=== PATIENT | female | born 2000 | race Caucasian/White ===

== ENCOUNTER 2020-02-15 08:33 | Outpatient (REF) | payer OTHER, SELFPAY ==
[2020-02-15 12:15] LABS: Syphilis Screen Nonreactive (Nonreactive)
[2020-02-15 13:59] LABS: CT PCR NOT DETECTED (Not Detect.); NG PCR NOT DETECTED (Not Detect.)
[2020-02-16 04:32] LABS: Hepatitis B Surface Antigen Negative (Negative); ~Hepatitis C Antibody Nonreactive (Nonreactive)
[2020-02-16 04:38] LABS: HIV AB/AG Nonreactive (Nonreactive); HIV Num 1 0.08 S/CO (0.00-0.99)
[2020-02-16 13:51] LABS: BV Int Neg Control Negative (Negative); BV Int Pos Control Positive (Positive)
== END 2020-02-15 08:34 | disposition home or self-care (01) ==
LOC: HO.LAB 08:33
PROVIDERS: Visit Provider Advanced Practice Midwife
DX: Z01.419 Encounter for gynecological examination (general) (routine) without abnormal findings (principal); Z11.59 Encounter for screening for other viral diseases; Z11.4 Encounter for screening for human immunodeficiency virus [HIV]; Z11.3 Encounter for screening for infections with a predominantly sexual mode of transmission; Z11.8 Encounter for screening for other infectious and parasitic diseases
CPT/HCPCS: 86780; 86803; 87340; 87389; 87480; 87491; 87510; 87591; 87660

== ENCOUNTER 2021-02-16 09:01 | Outpatient (REF) | payer OTHER, SELFPAY ==
[2021-02-17 13:54] LABS: CT PCR NOT DETECTED (Not Detect.); NG PCR NOT DETECTED (Not Detect.)
[2021-02-19 14:48] LABS: BV Int Neg Control Negative (Negative); BV Int Pos Control Positive (Positive)
== END 2021-02-16 09:02 | disposition home or self-care (01) ==
LOC: HO.LAB 09:01
PROVIDERS: PCP Internal Medicine; Visit Provider Advanced Practice Midwife
DX: Z30.41 Encounter for surveillance of contraceptive pills (principal); Z20.2 Contact with and (suspected) exposure to infections with a predominantly sexual mode of transmission
CPT/HCPCS: 87480; 87491; 87510; 87591; 87660; 88142

== ENCOUNTER 2022-03-16 10:27 | Outpatient (REF) | payer OTHER, SELFPAY ==
[2022-03-16 12:25] LABS: HBsAGNum1 0.32 S/CO (0.00-0.99); HIV AB/AG Nonreactive (Nonreactive); HIV Num 1 0.08 S/CO (0.00-0.99); Hepatitis B Surface Antigen Negative (Negative); ~HepC Num1 0.07 S/CO (0.00-0.79); ~Hepatitis C Antibody Nonreactive (Nonreactive)
[2022-03-16 12:26] LABS: Syphilis Screen Nonreactive (Nonreactive)
[2022-03-16 14:00] LABS: CT PCR NOT DETECTED (Not Detect.); NG PCR NOT DETECTED (Not Detect.)
[2022-03-18 14:21] LABS: BV Int Neg Control Negative (Negative); BV Int Pos Control Positive (Positive)
== END 2022-03-16 10:28 | disposition home or self-care (01) ==
LOC: HO.LNP 10:27
PROVIDERS: Visit Provider Advanced Practice Midwife
DX: Z11.3 Encounter for screening for infections with a predominantly sexual mode of transmission (principal); Z11.4 Encounter for screening for human immunodeficiency virus [HIV]; Z20.2 Contact with and (suspected) exposure to infections with a predominantly sexual mode of transmission
CPT/HCPCS: 86780; 86803; 87340; 87389; 87480; 87491; 87510; 87591; 87660

== ENCOUNTER 2023-01-14 15:01 | Outpatient (AMB) | payer BC, OTHER, SELFPAY ==
[2023-01-14 16:02] VITALS: BP 100/60; PULSE 98; TEMP 37.1; O2SAT 99; BMI 21.1
--- NOTE | 2023-01-14 16:02 | AM.OFFWIN_ITS ---
Intake Vital Signs 01/14/23 16:02 Height 5 ft 4 in Weight 123 lb BMI 21.1 BP 100/60 Blood Pressure Location Rt brachial Position Sitting Pulse 98 Pulse Source Pulse Oximeter Temp 98.7 F Temp Source Temporal Artery Scan Pulse Oximetry (%) 99 Oxygen Delivery Method Room Air Intake Visit Reasons: EP, redness eyes Intake Note: pt is here today for redness eyes Allergies [place] And Derivatives [CITRUS] Allergy (Severe, Verified 01/14/23 16:03) ANAPHYLAXIS peanut [PEANUT] Allergy (Severe, Verified 01/14/23 16:03) ANAPHYLAXIS citrus fruit Allergy (Unknown, Uncoded 01/14/23 16:03) itchy throat peanut Allergy (Unknown, Uncoded 01/14/23 16:03) anaphylaxis peanut buttter Allergy (Unknown, Uncoded 01/14/23 16:03) anaphylaxis Do you need a note to return to daycare/school/sports/work: No HPI EP, redness eyes HPI Details 22-year-old female [facility] sick [facility]. Patient is complaining of redness in both eyes. Itchiness with mucoid discharge. [facility] Medical History Dysuria Mild persistent asthma Surgical History No history of previous surgery Family History Mother Asthma Maternal Grandmother Liver cancer Paternal Grandmother Ovarian cancer Social History Alcohol intake: never Gender identity: Female Female Reproductive History Menstrual Age of Menarche: 14 Physical Exam Vital Signs: Last Vital Signs Temp 98.7 F 01/14/23 16:02 Pulse 98 01/14/23 16:02 BP 100/60 01/14/23 16:02 Pulse Ox 99 01/14/23 16:02 Oxygen Delivery Method Room Air 01/14/23 16:02 BMI result Body Mass Index 21.1 Eyes Other: Conjunctival congestion bilaterally. Corneas clear. Assessment & Plan Assessment & Plan (1) Conjunctivitis: Code(s): H10.9 - Unspecified conjunctivitis Plan: Erythromycin ophthalmic ointment. Note for work given. If symptoms not better to follow-up here. Medications: New erythromycin 0.5 inches ophthalmic (eye) TID 1 g 0RF Coding Level of Care Code Est Pt Level 3 (82913) Diagnoses Conjunctivitis H10.9
== END 2023-01-14 16:58 | disposition home or self-care (01) ==
PROVIDERS: PCP Nurse Practitioner Family; Visit Provider Internal Medicine
DX: H10.9 Unspecified conjunctivitis (principal)
CPT/HCPCS: 99213

== ENCOUNTER 2023-03-01 09:04 | Outpatient (AMB) | payer BC, SELFPAY ==
[2023-03-01 09:12] VITALS: BP 108/66; PULSE 96; RESP 13; TEMP 36.6; O2SAT 99; BMI 21.4
--- NOTE | 2023-03-01 09:12 | A.OFFPC_ITS ---
Vital Signs 03/01/23 09:12 Height 5 ft 4 in Weight 124 lb 8 oz BMI 21.4 BP 108/66 Blood Pressure Location Rt brachial Position Sitting Respiration 13 Pulse 96 Pulse Source Pulse Oximeter Temp 97.8 F Temp Source Temporal Artery Scan Pulse Oximetry (%) 99 Oxygen Delivery Method Room Air Intake Visit Reasons: New patient-Requesting PE+ NEEDS PHQ9 +THRIVE Television Announcer Required: No Accompanied by: Self / Same As Patient Allergies [place] And Derivatives [CITRUS] Allergy (Severe, Verified 03/01/23 09:27) ANAPHYLAXIS peanut [PEANUT] Allergy (Severe, Verified 03/01/23 09:27) ANAPHYLAXIS citrus fruit Allergy (Unknown, Uncoded 03/01/23 09:27) itchy throat peanut Allergy (Unknown, Uncoded 03/01/23 09:27) anaphylaxis peanut buttter Allergy (Unknown, Uncoded 03/01/23 09:27) anaphylaxis Medication List - Last Reconciled 03/01/23 by Tu Dominguez CNP norgestimate-ethinyl estradiol 0.25-35 mg-mcg (Sprintec (28)) 1 tab PO DAILY Tobacco use date assessed: 03/01/23 Dental Screening Dental Screen Date: 03/01/23 Did you have a dental visit in the last 12 months?: Yes Did you have a dental problem in the last 6 months where you did not have access to dental care?: No Was dental information given to patient?: Patient has dentist HPI HPI Comments History of Present Illness Details New patient Prior PCP:?[facility], Bonnie Otero Last office visit/CPE: Over 4 years ago Last routine blood work: unable to recall Medications: Sprintec Acute issue(s): Asthma -She is on albuterol inhaler Q4-6H PRN. She uses her inhaler every other day at least daily. She is recovering from cold symptoms PMHx: Mild persistent asthma SurgHx: None FHx: Mom: Asthma. MGM: liver cancer. PGM: Ovarian cancer SocHx: Nonsmoker. Occasional drinker. 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 She requests refill for EpiPen Last pap smear test: 2 years ago: negative She notes that she is sexually active, in a monogamous relationship, and has no concerns for STD [facility] Medical History (Updated 03/01/23 @ 09:59 by Tu Dominguez CNP) Anxiety Eczema Dysuria Mild persistent asthma Surgical History No history of previous surgery Family History Mother Asthma Maternal Grandmother Liver cancer Paternal Grandmother Ovarian cancer Social History Housing: Apartment Alcohol intake: never Patient Tobacco Use Status: Never used Tobacco e-Cigarette/Vaping Use: Never Used service: No Current occupational status: employed 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 1. Little interest or pleasure in doing things: not at all 2. Feeling down, depressed, or hopeless: not at all 3. Trouble falling or staying asleep, or sleeping too much: not at all 4. Feeling tired or having little energy: not at all 5. Poor appetite or overeating: not at all 6. Feeling bad about yourself - or that you are a failure or have let yourself or your family down: not at all 7. Trouble concentrating on things, such as reading the newspaper or watching television: not at all 8. Moving or speaking so slowly that other people could have noticed. Or the opposite - being so fidgety or restless that you have been moving around a lot more than usual: not at all 9. Thoughts that you would be better off or of hurting yourself in some way: not at all Total score: 0 Depression Screening Interpretation: Negative Depression Screening Done: Yes 24090 - PHQ-9 Billing: Yes Source: Developed by Drs. Alex Ayala, Jayda Jo, Chriss Padilla and colleagues, with an educational iron from [employer]. Thrive Questionnaire Date Thrive assessed: 03/01/23 I am a: Patient What is your living situation today?: I have a steady place to live Within the past 12 months, did the food you bought not last and you didn't have the money to get more?: Sometimes True Within the past 12 months, did you worry whether your food would run out before you got money to buy more?: Never true Do you have trouble paying for medicines?: No Do you have trouble getting transportation to medical appointments?: No Do you have trouble paying your heating and electricity bill?: No Do you have trouble taking care of your child, family member or friend?: No Do you have trouble with day-to-day activities such as bathing, preparing meals, shopping, managing finances, etc.?: No Are you currently unemployed and looking for a job?: No Are you interested in more education?: No Please select the resources that you would like help with: None Currently or been in a relationship where the following occur: no concerns reported AUDIT C Alcohol Use Questionnaire (AUDIT-C) 1. How often do you have a drink containing alcohol?: Monthly or less 2. How many drinks containing alcohol do you have on a typical day when you are drinking?: 3 or 4 3. How often do you have six or more drinks on one occasion?: Less than monthly Total Score: 3 LEE-7 AMB Questionnaire LEE-7 Date LEE - 7 assessed: 03/01/23 Feeling nervous, anxious, or on edge: 0 = Not at all Not being able to stop or control worryin = Not at all Worrying too much about different things: 0 = Not at all Trouble relaxin = Not at all Being so restless that it is hard to sit still: 0 = Not at all Becoming easily annoyed or irritable: 0 = Not at all Feeling afraid as if something awful might happen: 0 = Not at all Total LEE-7 score (0-4 normal; 5-9 mild; 10-14 moderate; 15-21 severe): 0 Source: Developed by Drs. Alex Ayala, Jayda Jo, Chriss Padilla and colleagues, with an educational iron from [employer]. LEE-7 Assessment Billing LEE-7 Assessment Tool: LEE-7 Assessment 94037 ACT Questionnaire In the past 4 weeks, how much of the time did your asthma keep you from getting as much done at work, school or at home?: Some of the time During the past 4 weeks, how often have you had shortness of breath?: Once a day During the past 4 weeks, how often did your asthma symptoms wake you up at night or earlier than usual in the morning?: 2-3 nights a week During the past 4 weeks, how often have you had to use your rescue inhaler or nebulizer medication?: 1-2 times a week How would you rate your asthma control during the past 4 weeks?: Well controlled ACT Interpretation: Positive Score: 13 Review of Systems Const Details: Denies chills, Denies fatigue, Denies fever(s), Denies headache(s) and Denies weakness HEENT Denies change in vision, Denies dizziness, Denies headache(s), Denies hearing loss, Denies nasal congestion, Denies sinus pain, Denies sinus pressure and Denies sore throat Card Denies chest pain, Denies lightheadedness, Denies dyspnea and Denies other (palpitations) Resp Denies cough, Denies dyspnea and Denies wheezing GI Denies abdominal pain, Denies melena, Denies hematochezia, Denies change in bowel habits, Denies dyspepsia and Denies nausea Denies hematuria and Denies dysuria Musc Denies abnormal gait, Denies myalgias, Denies arthralgias, Denies numbness and Denies tingling Skin/Breast Denies rash, Denies unusual bruising and Denies wounds Neuro Denies abnormal gait, Denies dizziness, Denies headache(s), Denies memory loss, Denies numbness, Denies Sensory deficit (Neuro), Denies tingling and Denies weakness Psych Denies anxiety, Denies depression and Denies memory loss Endo Denies cold intolerance, Denies fatigue, Denies heat intolerance, Denies polydipsia and Denies polyuria Hernando/Lymph Denies easy bleeding and Denies easy bruising Aller/Immun Denies wheezing Physical exam (Primary Care) Vital Signs: Last Vital Signs Temp 97.8 F 03/01/23 09:12 Pulse 96 03/01/23 09:12 Resp 13 03/01/23 09:12 BP 108/66 03/01/23 09:12 Pulse Ox 99 03/01/23 09:12 Oxygen Delivery Method Room Air 03/01/23 09:12 BMI result Body Mass Index 21.4 Tobacco/Smoking Status: Tobacco use Status Tobacco use date assessed 03/01/23 03/01/23 09:23 Patient Tobacco Use Status Never used Tobacco 03/01/23 09:23 e-Cigarette/Vaping Use Never Used 03/01/23 09:23 Depression Screening Interpretation: Negative Currently or been in a relationship where the following occur: no concerns reported Const Other: General: no acute distress, well developed, alert and awake Nutritional Appearance: well nourished Orientation/consciousness: patient oriented x3 HENMT Head: Yes normocephalic and Yes atraumatic Ears: hearing grossly normal bilaterally and TM's normal bilaterally General nose exam: Normal external nose present and Normal nares present Mouth: Normal oral and palatal mucosa present and moist mucous membranes Teeth and gingiva: dentition normal Throat: Yes oropharynx normal Eyes Pupils: Equal, round and reactive pupils present and Pupil accommodation reflex normal EOM: EOMs intact bilaterally Neck Neck: Yes normal visual inspection, Yes no lymphadenopathy and Yes trachea midline Thyroid: Thyroid normal Carotids: no bruits Lymphatic: no lymphadenopathy noted Chest Chest palpation & inspection: normal inspection of the chest Resp Effort & Inspection: normal respiratory effort Auscultation: clear to auscultation bilaterally Cardio Rate: regular rate Rhythm: regular rhythm Heart sounds: S1 normal heart sound present, S2 normal heart sound present, no gallops, no murmurs and no rubs Bruits: no abdominal aortic bruits and no carotid bruits GI Palpation (GI): No Abdominal aortic bruit present, Soft to palpation, nontender, No hepatosplenomegaly present and No Rebound tenderness present Auscultation: normal bowel sounds General: Yes no CVA tenderness Back/Spine/Pelvis Back: no CVA tenderness Cervical Spine: cervical ROM normal and No Cervical spine tenderness Thoracic/Lumbar Spine: thoraco-lumbar ROM normal, No pain with thoraco-lumbar ROM, No thoracic spinal tenderness and No lumbar spinal tenderness Skin General: warm and dry. Normal skin color. Normal skin turgor Lesions: no lesions Rashes: no rashes Trauma: no lacerations or abrasions Wounds: no wounds Nails: normal Neuro General: patient oriented x3, gait normal and CN's II-XI intact bilaterally Cranial nerves: Yes Equal, round and reactive pupils present Cognition (Neuro): normal cognition Gait exam (Neuro): Normal gait present Motor exam (neuro): 5/5 motor strength present throughout Sensory Exam: No Sensory deficit (Neuro) Deep tendon reflexes (DTR's): Right patellar reflex intensity grade: 2+ and Left patellar reflex intensity grade: 2+ Extrem General: Yes normal to inspection, No edema and No calf tenderness Psych Appearance: grossly normal Affect: normal affect Attitude: cooperative Thought process: Normal thought process present Assessment and Plan Assessment & Plan (1) Normal physical examination, routine: Code(s): Z00.00 - Encounter for general adult medical examination without abnormal findings Plan: No significant physical restrictions or limitations noted Advised to get fasting blood work done and schedule a telehealth appointment for labs review Continue current treatment regimen Follow-up with symptoms or concerns Verbalized understanding and agreed with treatment plan (2) Laboratory tests ordered as part of a complete physical exam (CPE): Code(s): Z00.00 - Encounter for general adult medical examination without abnormal findings Plan: Fasting labs ordered as part of a complete physical exam. Advised to fast for at least 10 hours before getting labs drawn. May drink water Verbalized understanding and agreed with treatment plan. (3) Mild persistent asthma: Code(s): J45.30 - Mild persistent asthma, uncomplicated Plan: Reports history of asthma She is on albuterol inhaler Q4-6H PRN. She uses her inhaler every other day at least daily. She is recovering from cold symptoms ACT score is 13, indicates poorly control asthma. Cold symptoms may be attributed to this Albuterol inhaler as prescribed Adequate hydration and rest encouraged Follow-up with worsening or new symptoms Verbalized understanding and agreed with treatment plan Orders: Orders Complete Blood Count Auto Diff Today Z00.00 - Encounter for general adult medical examination without abnormal findings Comprehensive Peculiar. Panel Fast Today Z00.00 - Encounter for general adult medical examination without abnormal findings Lipid Panel Today Z00.00 - Encounter for general adult medical examination without abnormal findings TSH reflex Free T4 Today Z00.00 - Encounter for general adult medical examination without abnormal findings UA CC w/rflx Micro + Cult Today Z00.00 - Encounter for general adult medical examination without abnormal findings Medications: New albuterol sulfate 90 mcg/actuation 2 puffs inhalation Q4-6H PRN 8.5 grams 6RF shortness of breath or wheezing epinephrine (EpiPen 2-Kvng) May repeat dose x1 after 5-15min. Call 911 for emergency evaluation after first injection 0.3 mg (0.3 mL) IM Q4H PRN 2 ea 2RF anaphylaxis Coding Level of Care Code New Pt Prev Care 18-39yr([id number] Diagnoses Normal physical examination, routine Z00.00 Laboratory tests ordered as part of a complete physical exam (CPE) Z00.00 Mild persistent asthma J45.30 Additional Codes LEE-7 Assessment Billing - LEE-7 Assessment Tool: LEE-7 Assessment 39898 ([id number])
== END 2023-03-01 10:01 | disposition home or self-care (01) ==
PROVIDERS: PCP Internal Medicine; Visit Provider Nurse Practitioner Family
DX: Z00.00 Encounter for general adult medical examination without abnormal findings (principal); J45.30 Mild persistent asthma, uncomplicated
CPT/HCPCS: 99385

== ENCOUNTER 2023-03-01 10:02 | Outpatient (REF) | payer BC, SELFPAY ==
[2023-03-01 11:26] LABS: Appearance Urine Clear; Color Urine Yellow; Glucose Urine UA Negative (Negative); Leukocyte Esterase Urine Moderate (2+) (Negative); MANUAL DIFF FLAG NO; Nitrite Urine Negative (Negative); PH 7.5 (5.0-9.0); UMIC TRIGGER UACC YES; Urine Blood Negative (Negative); Urine Ketones Negative (Negative); Urine Protein Negative (Neg-Trace)
[2023-03-01 11:39] LABS: Basophils Absolute Auto 0.1 X10*3/uL (0.0-0.2); Basophils Percent Auto 1.2 % (0-2); Eosinophils Absolute Auto 0.4 X10*3/uL (0.0-0.4); Eosinophils Percent Auto 4.6 % (0-4); Hematocrit 42.2 % (37.0-47.0); Hemoglobin 13.6 g/dl (12.0-16.0); Imm Gran Abs Auto 0.03 X10*3/uL (0.00-0.03); Imm Gran Pct Auto 0.4 % (0.0-0.4); Lymphocytes Absolute Auto 1.6 X10*3/uL (1.2-4.9); Lymphocytes Percent Auto 19.4 % (20-40); Mean Corpuscular HGB Conc 32.2 g/dl (31.0-35.0); Mean Corpuscular Hemoglobin 28.5 pg (27.0-33.0); Mean Corpuscular Volume 88.5 fL (80.0-98.0); Mean Platelet Volume 9.9 fL (9.4-12.3); Monocytes Absolute Auto 0.7 X10*3/uL (0.1-1.2); Monocytes Percent Auto 8.2 % (2-11); Neutrophils Absolute Auto 5.3 x10*3/uL (2.0-8.3); Neutrophils Percent Auto 66.2 % (45-73); Platelet Count 358 X10*3/uL (160-400); Red Blood Count 4.77 X10*6/uL (4.20-5.50); Red Cell Distribution Width 12.9 % (11.0-16.0)
[2023-03-01 12:03] LABS: Bacteria Urine 1+ (None Seen)
[2023-03-01 12:04] LABS: WBC Urine 0-5 /HPF (0-5)
[2023-03-01 12:05] LABS: Hyaline Casts Urine 0-2 /LPF (0-2); RBC Urine 0-2 /HPF (0-2); Squamous Epithelial Cell Urine 0-2 /HPF (0-2)
[2023-03-01 12:09] LABS: Alanine Aminotransferase 12 U/L (0-31); Albumin Level 4.3 g/dL (3.5-5.0); Alkaline Phosphatase 68 U/L (39-117); Anion Gap 11 (12-20); Aspartate Amino Transferase 17 U/L (5-31); Bilirubin Total 0.4 mg/dL (0.0-1.0); Blood Urea Nitrogen 8 mg/dL (9-16); Calcium 9.6 mg/dL (8.4-10.2); Carbon Dioxide 24 mmol/L (22-29); Chloride 108 mmol/L (96-108); Cholesterol 158 mg/dL (<200); Estimated Glomerular Filt Rate > 60; Glucose Fasting 95 mg/dL (60-99); HDL Cholesterol 58 mg/dL (>40); LDL Cholesterol Calculated 92 mg/dL (<100); Potassium 4.1 mmol/L (3.3-5.1); Sodium 139 mmol/L (135-145); Total Protein 8.4 g/dL (6.5-8.0); Triglycerides 41 mg/dL (<150)
[2023-03-01 12:13] LABS: TSH reflex Free T4 1.46 uIU/mL (0.32-4.0)
== END 2023-03-01 10:03 | disposition home or self-care (01) ==
LOC: HO.WFDLDS 10:02
PROVIDERS: Visit Provider Nurse Practitioner Family
DX: Z00.00 Encounter for general adult medical examination without abnormal findings (principal)
CPT/HCPCS: 36415; 80053; 80061; 81001; 84443; 85025

== ENCOUNTER 2023-03-18 09:36 | Outpatient (AMB) | payer BC, SELFPAY ==
[2023-03-18 09:48] VITALS: BMI 22.0
--- NOTE | 2023-03-18 09:48 | A.OFFVIS_ITS ---
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 Required: No Information Interpreted: non-clinical & clinical Retort Condenser Attendant: Retort Condenser Attendant Present (Walter) Allergies [place] And Derivatives [CITRUS] Allergy (Severe, Verified 03/18/23 09:49) ANAPHYLAXIS peanut [PEANUT] Allergy (Severe, Verified 03/18/23 09:49) ANAPHYLAXIS citrus fruit Allergy (Unknown, Uncoded 03/18/23 09:49) itchy throat peanut Allergy (Unknown, Uncoded 03/18/23 09:49) anaphylaxis peanut buttter Allergy (Unknown, Uncoded 03/18/23 09:49) anaphylaxis Medication List - Last Reconciled 03/18/23 by Porsha Burgos CNM albuterol sulfate 90 mcg/actuation 2 puffs inhalation Q4-6H PRN epinephrine (EpiPen 2-Kvng) 0.3 mg (0.3 mL) IM Q4H PRN norgestimate-ethinyl estradiol 0.25-35 mg-mcg (Sprintec (28)) 1 tab PO DAILY Is last menstrual period known: Yes Last menstrual period: 03/07/23 Post menopausal: No HPI 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 She has no health concerns and no worries about STIs but accepts testing. She had a normal Pap in 2020 so she is not due for Pap this year. She broke her foot this year and was out of work for 6 months because she could not drive. She is better now. She is in a relationship with a partner who now has custody of 2 children so they are raising them. 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 Gender identity: Female Cognitive needs: No Hearing needs: No Vision needs: No Female Reproductive History Menstrual Age of Menarche: 14 Duration of menses: 3-5 days Date of last menstrual period: 03/07/23 control method: pills Total pregnancies: 0 Date of last pap smear: 02/20/21 (negative) History of abnormal pap smear: No Physical Exam Vital Signs: BMI result Body Mass Index 22.0 Const General: healthy appearing, comfortable, no acute distress, well developed and alert Nutritional Appearance: average body habitus Orientation/consciousness: patient oriented x3 Limitations: no limitations HEENT Head: Yes normocephalic Neck Neck: Yes normal visual inspection Thyroid: Thyroid normal Chest Chest palpation & inspection: normal inspection of the chest Breast/axilla inspection: normal inspection of the breasts and normal inspection of the axillae Breast/axilla palpation: normal palpation of the breasts and normal palpation of the axillae Resp Effort & Inspection: normal respiratory effort GI Inspection: Yes normal to inspection, No Abdominal wall edema and No distended Palpation (GI): Soft to palpation and nontender General: Yes bladder normal to palpation External Female Exam: normal external appearance and normal appearance of the urethra Speculum Exam - Vagina: normal appearance of the vagina, normal palpation and normal vaginal discharge Speculum Exam - Cervix: normal appearance of the cervix, normal palpation and nontender Bimanual exam- vagina & uterus: normal bimanual exam, normal palpation, uterine size normal, bladder normal to palpation, consistency normal, normal palpation, uterine mobility normal, uterine shape normal, No Cervical tenderness present, non-tender and no cervical motion tenderness Bimanual Exam- Adnexa, other: normal adnexae, no masses, normal and No adnexal tenderness Neuro General: patient oriented x3 Assessment & Plan Assessment & Plan (1) Screen for sexually transmitted diseases: Code(s): Z11.3 - Encounter for screening for infections with a predominantly sexual mode of transmission (2) Cervical cancer screening: Comment: 02/14/21 pap= neg Code(s): Z12.4 - Encounter for screening for malignant neoplasm of cervix (3) Well woman exam with routine gynecological exam: Code(s): Z01.419 - Encounter for gynecological examination (general) (routine) without abnormal findings Plan -----Discussed in this visit the following: healthy balanced diet, regular and consistent exercise, getting recommended health screens, doing the best she can for her particular health concerns, kegel exercises, pap smear screening and followup recommendations, mammography screening and SBE, normal changes in cycles in her life stage--- . Patient is in of is stable to year relationship with her partner who had a vasectomy after the of his 2nd youngest child who with a are now raising and have custody of. She has made a decision to go off control pills because she does not need them anymore and she stopped after the last cycle which her period came on 03/07. Education was done about resumption of normal cyclic discharge changes and what to expect and in fact she appeared to have mucus consistent with pending ovulation now which I educated her about. Reviewed her health overall Testing done for gonorrhea chlamydia trich Gardnerella and Daja discharge appeared completely normal. Patient had been out of work for 6 months because she broke her foot She is back to work now and she also recently had her 1st full primary care appointment and blood work and will be getting those results soon she has no other health concerns. Orders: Orders Bacterial Vaginosis Panel Today Z11.3 - Encounter for screening for infections with a predominantly sexual mode of transmission CT NG by PCR Today Z20.2 - Contact with and (suspected) exposure to infections with a predominantly sexual mode of transmission Coding Level of Care Code Est Pt Prev Care 18-39y(41240) Diagnoses Screen for sexually transmitted diseases Z11.3 Cervical cancer screening Z12.4 Well woman exam with routine gynecological exam Z01.419
== END 2023-03-18 10:28 | disposition home or self-care (01) ==
LOC: HO.HWS 09:36
PROVIDERS: PCP Nurse Practitioner Family; Visit Provider Advanced Practice Midwife
DX: Z01.419 Encounter for gynecological examination (general) (routine) without abnormal findings (principal)
CPT/HCPCS: 99395

== ENCOUNTER 2023-03-18 09:36 | Outpatient (REF) | payer BC, SELFPAY ==
[2023-03-19 06:17] LABS: CT PCR NOT DETECTED (Not Detect.); NG PCR NOT DETECTED (Not Detect.)
[2023-03-19 16:14] LABS: BV Int Neg Control Negative (Negative); BV Int Pos Control Positive (Positive)
== END 2023-03-18 09:37 | disposition home or self-care (01) ==
LOC: HO.LNP 09:36
PROVIDERS: PCP Nurse Practitioner Family; Visit Provider Advanced Practice Midwife
DX: Z20.2 Contact with and (suspected) exposure to infections with a predominantly sexual mode of transmission (principal)
CPT/HCPCS: 0353U; 87480; 87510; 87660

== ENCOUNTER 2024-05-27 | Outpatient (REF) | payer BC, SELFPAY ==
[2024-05-27 22:01] LABS: Bacterial Vaginosis PCR NEGATIVE (Negative); Candida Group PCR NOT DETECTED (Not Detect); Candida glab krusei PCR NOT DETECTED (Not Detect); Trichomonas vaginalis PCR NOT DETECTED (Not Detect)
[2024-05-27 23:29] LABS: CT PCR NOT DETECTED (Not Detect.); NG PCR NOT DETECTED (Not Detect.)
== END 2024-05-27 00:01 | disposition home or self-care (01) ==
LOC: HO.LNP
PROVIDERS: Visit Provider Advanced Practice Midwife
DX: N89.8 Other specified noninflammatory disorders of vagina (principal); Z20.2 Contact with and (suspected) exposure to infections with a predominantly sexual mode of transmission
CPT/HCPCS: 81515; 87491; 87591

== ENCOUNTER 2024-05-27 10:36 | Outpatient (REF) | payer BC, SELFPAY | END 2024-05-27 10:37 | disposition home or self-care (01) | LOC: HO.LAB 10:36 | PROVIDERS: PCP Nurse Practitioner Family; Visit Provider Advanced Practice Midwife | DX: Z13.89 Encounter for screening for other disorder (principal) ==

== ENCOUNTER 2024-05-27 10:36 | Outpatient (AMB) | payer BC, SELFPAY ==
--- NOTE | 2024-05-27 10:37 | A.OFFVIS_ITS ---
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 Lace Weaver Required: No Lace Weaver Services: Lace Weaver Present Information Interpreted: clinical only Patient Relations Specialist: Patient Relations Specialist Present Allergies [place] And Derivatives [CITRUS] Allergy (Severe, Verified 05/27/24 10:45) ANAPHYLAXIS peanut [PEANUT] Allergy (Severe, Verified 05/27/24 10:45) ANAPHYLAXIS citrus fruit Allergy (Unknown, Uncoded 05/27/24 10:45) itchy throat peanut Allergy (Unknown, Uncoded 05/27/24 10:45) anaphylaxis peanut buttter Allergy (Unknown, Uncoded 05/27/24 10:45) anaphylaxis Medication List - Last Reviewed 05/27/24 by Teressa Braden, KARLENE albuterol sulfate 90 mcg/actuation 2 puffs inhalation Q4-6H PRN amoxicillin-pot clavulanate 500-125 mg 1 tab PO BID epinephrine (EpiPen 2-Kvng) 0.3 mg (0.3 mL) IM Q4H PRN Is last menstrual period known: Yes Last menstrual period: 05/11/24 HPI HPI 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 She is in a relationship now for coming up on 3 years partner who has 2 children a previous relationship and they have custody the 2 girls ages 4 9. She is enjoying parenting and it is working out really well and they all get along. . He had a vasectomy so she would not have to worry about control. However she also has in where condoms she was getting a recurrent BV and that was challenging. She has also been suffering from recurrent UTIs she has typically gone to urgent care and had been diagnosed she has had about 6 year the most recent 1 she was prescribed Bactrim for and this time because she went and they decided it was too soon to give her Bactrim again so they prescribed Augmentin clavulinic acid and she is on the 2nd or 3rd pill now. 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 She has an appointment coming up with her primary care provider to discuss all of these issues. She also has lots food allergies what she is managing and careful about and there being careful as a family was learning about the Children's reactions to foods etc.. Her cycle is extremely regular 28-29 days and she can tell when she ovulates as well. 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 Gender identity: Female Cognitive needs: No Hearing needs: No Vision needs: No Female Reproductive History Menstrual Age of Menarche: 14 Duration of menses: 3-5 days Date of last menstrual period: 05/11/24 control method: none Total pregnancies: 0 Date of last pap smear: 02/01/21 (NEGATIVE) History of abnormal pap smear: No Physical Exam Vital Signs: Last Vital Signs BP 110/62 05/27/24 10:44 BMI result Body Mass Index 22.0 Const General: healthy appearing, comfortable, no acute distress, well developed and alert Nutritional Appearance: average body habitus Orientation/consciousness: patient oriented x3 Limitations: no limitations HEENT Head: Yes normocephalic Neck Neck: Yes normal visual inspection Chest Chest palpation & inspection: normal inspection of the chest Breast/axilla inspection: normal inspection of the breasts and normal inspection of the axillae Breast/axilla palpation: normal palpation of the breasts and normal palpation of the axillae Resp Effort & Inspection: normal respiratory effort GI Inspection: Yes normal to inspection, No Abdominal wall edema and No distended Palpation (GI): Soft to palpation and nontender General: Yes bladder normal to palpation External Female Exam: normal external appearance and normal appearance of the urethra Speculum Exam - Vagina: normal appearance of the vagina, normal palpation and normal vaginal discharge Speculum Exam - Cervix: normal appearance of the cervix, normal palpation and nontender Bimanual exam- vagina & uterus: normal bimanual exam, normal palpation, uterine size normal, bladder normal to palpation, consistency normal, normal palpation, uterine mobility normal, uterine shape normal, No Cervical tenderness present, non-tender and no cervical motion tenderness Bimanual Exam- Adnexa, other: normal adnexae, no masses, normal and No adnexal tenderness Neuro General: patient oriented x3 Results Reviewed Results Reviewed: Name: Nano Ulloa Age/Sex: 20/F Attending: Porsha Burgos CNM : 2000 Submitted by: Porsha Burgos CNM Copies to: Nohemi Blackmon MD MR #: [id number] Status: DEP REF Collected: 02/16/21 Location: .LAB Received: 02/20/21 Interpretation Satisfactory for evaluation. Negative for intraepithelial lesion or malignancy. Clinical Information LMP: 02/01/21 Previous PAP test: No previous pap Material Received ThinPrep- Cervical Copies To Noehmi Blackmon MD [address] [place] [address] Dr. Ivan [place] [id number] Porsha Burgos CNM [address] [place] [address] [place] [id number] Electronically Signed By: MAGGIE Mccauley (ASCP) 03/02/21 [id number] The Pap Test is a screening procedure with the inherent possibility of both false negative and false positive results. Results should be interpreted in the context of historic and current clinical findings. Reliability of the Pap Test is enhanced by performing the test on a regular repetitive basis. Patient: Nano Ulloa Age/Sex: 20/F MR#: [id number] Page 1 of 1 Assessment & Plan Assessment & Plan (1) Well woman exam with routine gynecological exam: Code(s): Z01.419 - Encounter for gynecological examination (general) (routine) without abnormal findings Category: Medical (2) Cervical cancer screening: Comment: 02/14/21 pap= neg Code(s): Z12.4 - Encounter for screening for malignant neoplasm of cervix Category: Medical (3) Potential exposure to STD: Code(s): Z20.2 - Contact with and (suspected) exposure to infections with a predominantly sexual mode of transmission Category: Medical (4) Recurrent UTI (urinary tract infection): Comment: Thinks she has had about 6 UTIs past year currently on Augmentin,( states culture was done at urgent care) and azo, previous Rx was for Bactrim. Discussed factors that can contribute to recurrences and prophylactic treatment with frequent voiding around intercourse avoidance of urethral irritation etc. also discussed probiotics suggested urology consultation... Code(s): N39.0 - Urinary tract infection, site not specified Category: Medical (5) Relies on partner's vasectomy for primary method of contraception: Code(s): Z78.9 - Other specified health status Category: Social Hx Plan Discussed her challenges with food allergies discussed her challenges with recurrent UTIs she has had about 6 past year she thinks and she is currently on Augmentin. She says she frequently that is yeast infections after them and she also gets come bacterial vaginosis she has no evidence of either today but she is only on the 3rd pills of the Augmentin. She finds fluconazole better than creams because she is route carrier walks 50 miles a day extremely messy and unhelpful in her uniform. I am sending a prescription for fluconazole that she can initiate when she needs it. Discussed the anatomy which is normal but which can provide for recurrences of UTI because of the proximity of the urethra to vagina. Discussed voiding before and after which she does. Discussed use unsweetened cranberry juice, though she was told to avoid it while she is taking the Augmentin. She is going to be discussing everything with her primary care provider. She has been doing body her best to avoid bacterial vaginosis and yeast infections by prophylactic actions, but discussed importance of getting ahead of the UTIs so that she does not have to take antibiotics anymore than absolutely necessary for her long-term health discussed use of probiotics as well including yogurt probiotics and kombucha. She had no need for blood work for STIs Pap done as well as routine screening for STIs. Orders: Orders Bacterial Vaginosis Panel Today N89.8 - Other specified noninflammatory disorders of vagina, Z20.2 - Contact with and (suspected) exposure to infections with a predominantly sexual mode of transmission Pap Smear Today Z00.00 - Encounter for general adult medical examination without abnormal findings CT NG by PCR Today N89.8 - Other specified noninflammatory disorders of vagina, Z20.2 - Contact with and (suspected) exposure to infections with a predominantly sexual mode of transmission Medications: New fluconazole may repeat second dose 72 hrs after first dose if symptoms persist 150 mg PO Q3D 2 doses 2 tabs 0RF Coding Level of Care Code Est Pt Prev Care [id number]([id number]) Diagnoses Well woman exam with routine gynecological exam Z01.419 Cervical cancer screening Z12.4 Potential exposure to STD Z20.2 Recurrent UTI (urinary tract infection) N39.0 Relies on partner's vasectomy for primary method of contraception Z78.9
[2024-05-27 10:44] VITALS: BP 110/62; BMI 22.0
== END 2024-05-27 11:27 | disposition home or self-care (01) ==
PROVIDERS: PCP Nurse Practitioner Family; Visit Provider Advanced Practice Midwife
DX: Z01.419 Encounter for gynecological examination (general) (routine) without abnormal findings (principal)
CPT/HCPCS: 99395; 99459

== ENCOUNTER 2024-05-27 11:19 | Outpatient (REF) | payer BC, SELFPAY | END 2024-05-27 11:20 | disposition home or self-care (01) | LOC: HO.LNP 11:19 | PROVIDERS: Visit Provider Advanced Practice Midwife | DX: Z00.00 Encounter for general adult medical examination without abnormal findings (principal); Z12.4 Encounter for screening for malignant neoplasm of cervix | CPT/HCPCS: 88175 ==

== ENCOUNTER 2024-06-01 10:39 | Outpatient (AMB) | payer BC, SELFPAY ==
--- NOTE | 2024-06-01 10:44 | A.OFFPC_ITS ---
Vital Signs 06/01/24 10:56 Height 5 ft 4 in Weight 129 lb BMI 22.1 BP 118/68 Blood Pressure Location Lt brachial Position Sitting Respiration 16 Pulse 77 Pulse Source Pulse Oximeter Temp 98.0 F Temp Source Oral Pulse Oximetry (%) 98 Oxygen Delivery Method Room Air Intake Visit Reasons: Urinary tract infection reacquiring Intake Note: patient here c/o having repeated UTI in the past few months. she just finished antibiotic yesterday. 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 Required: No Is last menstrual period known: Yes Last menstrual period: 05/11/24 Post menopausal: No Patient : No Allergies [place] And Derivatives [CITRUS] Allergy (Severe, Verified 06/01/24 11:14) ANAPHYLAXIS peanut [PEANUT] Allergy (Severe, Verified 06/01/24 11:14) ANAPHYLAXIS citrus fruit Allergy (Unknown, Uncoded 06/01/24 11:14) itchy throat peanut Allergy (Unknown, Uncoded 06/01/24 11:14) anaphylaxis peanut buttter Allergy (Unknown, Uncoded 06/01/24 11:14) anaphylaxis Medication List - Last Reconciled 06/01/24 by Tu Dominguez CNP albuterol sulfate 90 mcg/actuation 2 puffs inhalation Q4-6H PRN epinephrine (EpiPen 2-Kvng) 0.3 mg (0.3 mL) IM Q4H PRN Tobacco use date assessed: 06/01/24 Dental Screening Dental Screen Date: 06/01/24 Did you have a dental visit in the last 12 months?: Yes Did you have a dental problem in the last 6 months where you did not have access to dental care?: No Was dental information given to patient?: Patient has dentist HPI HPI Comments History of Present Illness Details 23-year-old female presents with complai nts of frequent UTI. She has been experiencing UTI symptoms every other month beginning September 2023. She has receiving treatment from the urgent care and has been treated with Bactrim and Augmentin. Her last UTI symptoms was 5 days ago; she completed Augmentin yesterday. However, she continues to experience burning with urination; no abdominal pain, hematuria, discharge with urination. No constitutional symptoms. 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 1. Little interest or pleasure in doing things: not at all 2. Feeling down, depressed, or hopeless: not at all 3. Trouble falling or staying asleep, or sleeping too much: not at all 4. Feeling tired or having little energy: not at all 5. Poor appetite or overeating: not at all 6. Feeling bad about yourself - or that you are a failure or have let yourself or your family down: not at all 7. Trouble concentrating on things, such as reading the newspaper or watching television: not at all 8. Moving or speaking so slowly that other people could have noticed. Or the opposite - being so fidgety or restless that you have been moving around a lot more than usual: not at all 9. Thoughts that you would be better off or of hurting yourself in some way: not at all Total score: 0 Source: Developed by Drs. Alex Ayala, Jayda Jo, Chriss Padilla and colleagues, with an educational iron from [employer]. Thrive Questionnaire Date Thrive assessed: 05/29/24 I am a: Patient What is your living situation today?: I have a steady place to live Within the past 12 months, did the food you bought not last and you didn't have the money to get more?: Never true Within the past 12 months, did you worry whether your food would run out before you got money to buy more?: Never true Do you have trouble paying for medicines?: No Do you have trouble getting transportation to medical appointments?: No Do you have trouble paying your heating and electricity bill?: No Do you have trouble taking care of your child, family member or friend?: No Do you have trouble with day-to-day activities such as bathing, preparing meals, shopping, managing finances, etc.?: No Are you currently unemployed and looking for a job?: No Are you interested in more education?: No Please select the resources that you would like help with: None Currently or been in a relationship where the following occur: No concerns reported THRIVE Score: 0 AUDIT C Alcohol Use Questionnaire (AUDIT-C) 1. How often do you have a drink containing alcohol?: Monthly or less 2. How many drinks containing alcohol do you have on a typical day when you are drinking?: 1 or 2 3. How often do you have six or more drinks on one occasion?: Never Total Score: 1 LEE-7 AMB Questionnaire LEE-7 Date LEE - 7 assessed: 03/01/23 Feeling nervous, anxious, or on edge: 0 = Not at all Not being able to stop or control worryin = Not at all Worrying too much about different things: 0 = Not at all Trouble relaxin = Not at all Being so restless that it is hard to sit still: 0 = Not at all Becoming easily annoyed or irritable: 1 = Several days Feeling afraid as if something awful might happen: 0 = Not at all Total LEE-7 score (0-4 normal; 5-9 mild; 10-14 moderate; 15-21 severe): 1 Source: Developed by Drs. Alex Ayala, Jayda Jo, Chriss Padilla and colleagues, with an educational iron from [employer]. Review of Systems Const Details: Const Denies chills, Denies fatigue, Denies fever(s), Denies headache(s) and Denies weakness ENT Denies dizziness and Denies headache(s) Card Denies chest pain, Denies lightheadedness, Denies dyspnea and Denies other (Palpitations) Resp Denies cough, Denies dyspnea, Denies wheezing and Denies other ( shortness of breath) GI Denies abdominal pain, Denies melena, Denies hematochezia, Denies change in bowel habits, Denies dyspepsia and Denies nausea Reports as per HPI Musc Denies abnormal gait, Denies myalgias, Denies arthralgias, Denies numbness and Denies tingling Skin/Breast Denies rash, Denies unusual bruising and Denies wounds Neuro Denies abnormal gait, Denies dizziness, Denies headache(s), Denies memory loss, Denies numbness, Denies Sensory deficit (Neuro), Denies tingling and Denies weakness Psych Denies anxiety, Denies depression, Denies memory loss Endo Denies cold intolerance, Denies fatigue, Denies heat intolerance, Denies polydipsia and Denies polyuria Aller/Immun Denies wheezing Physical exam (Primary Care) Vital Signs: Last Vital Signs Temp 98.0 F 06/01/24 10:56 Pulse 77 06/01/24 10:56 Resp 16 06/01/24 10:56 BP 118/68 06/01/24 10:56 Pulse Ox 98 06/01/24 10:56 Oxygen Delivery Method Room Air 06/01/24 10:56 BMI result Body Mass Index 22.1 Tobacco/Smoking Status: Tobacco use Status Tobacco use date assessed 06/01/24 06/01/24 10:59 Patient Tobacco Use Status Never used Tobacco 06/01/24 10:45 e-Cigarette/Vaping Use Never Used 06/01/24 10:45 PHQ-9: PHQ-9 Score PHQ-9: Total score 0 06/01/24 10:59 Thrive Assessment: Date of Thrive Assessment Date Thrive assessed 05/29/24 06/01/24 10:45 Currently or been in a relationship where the following occur: No concerns reported Const Other: General: no acute distress and well developed Nutritional Appearance: well nourished Orientation/consciousness: patient oriented x3 HENMT Head: Yes normocephalic and Yes atraumatic Eyes General: appearance normal, both eyes and all related structures Pupils: Equal, round and reactive pupils present EOM: EOMs intact bilaterally Resp Effort & Inspection: normal respiratory effort Auscultation: clear to auscultation bilaterally Cardio Rate: regular rate Rhythm: regular rhythm Heart sounds: S1 normal heart sound present, S2 normal heart sound present, no gallops, no murmurs and no rubs GI Palpation (GI): No Abdominal aortic bruit present, Soft to palpation, mild suprapubic tenderness to palpation, No hepatosplenomegaly present and No Rebound tenderness present Auscultation: normal bowel sounds General: Yes no CVA tenderness Back/Spine/Pelvis Back: no CVA tenderness Cervical Spine: cervical ROM normal and No Cervical spine tenderness Thoracic/Lumbar Spine: thoraco-lumbar ROM normal, No pain with thoraco-lumbar ROM, No thoracic spinal tenderness and No lumbar spinal tenderness Extrem General: Yes normal to inspection, No edema and No calf tenderness Skin General: warm and dry. Normal skin color. Normal skin turgor Neuro General: patient oriented x3, gait normal and no focal neuro deficit Cranial nerves: Yes Equal, round and reactive pupils present Cognition (Neuro): normal cognition Gait exam (Neuro): Normal gait present Sensory Exam: No Sensory deficit (Neuro) Psych Appearance: grossly normal Affect: normal affect Attitude: cooperative Thought process: Normal thought process present Results AMB Urinalysis, Automated UA Leukoctes 0 Viv/uL Last Edit by Maribel Hicks on 06/01/24 11:54 UA Nitrite Negative Last Edit by Maribel Hicks on 06/01/24 11:54 UA Urobilinogen 0 mg/dL Last Edit by Maribel Hicks on 06/01/24 11:54 UA Protein 0 mg/dL Last Edit by Maribel Hicks on 06/01/24 11:54 UA pH 6.0 Last Edit by Maribel Hicks on 06/01/24 11:54 UA Blood 0 Felipe/uL Last Edit by Maribel Hicks on 06/01/24 11:54 UA Specific [place] 1.015 Last Edit by Maribel Hicks on 06/01/24 11:54 UA Ketone Negative Last Edit by Maribel Hicks on 06/01/24 11:54 UA Bilirubin 0 mg/dL Last Edit by Maribel Hicks on 06/01/24 11:54 UA Glucose 0 mg/dL Last Edit by Maribel Hicks on 06/01/24 11:54 Coding Level of Care Code Est Pt Level 3 (19758) Diagnoses Recurrent UTI (urinary tract infection) N39.0 Assessment & Plan Assessment & Plan (1) Recurrent UTI (urinary tract infection): Code(s): N39.0 - Urinary tract infection, site not specified Category: Medical Plan: Recurrent UTI, every other month, since 09/19/2023. She recently completed a course of Augmentin. Positive dysuria. mild suprapubic tenderness to palpation. Urine dip is negative for UTI. Will send urine sample to the lab for urinalysis and culture. Will review results and make changes as needed. Will refer to Urology if symptoms continue. Adequate hydration encouraged. Instructed on genital hygiene. Advised to schedule an extended physical exam. Follow-up with worsening or new symptoms. Verbalized understanding and agreed with treatment plan. Orders: Orders UA CC w/rflx Micro + Cult Today N39.0 - Urinary tract infection, site not specified AMB Urinalysis Automated Today Z13.9 - Encounter for screening, unspecified
[2024-06-01 10:56] VITALS: BP 118/68; PULSE 77; RESP 16; TEMP 36.7; O2SAT 98; BMI 22.1
== END 2024-06-01 11:29 | disposition home or self-care (01) ==
PROVIDERS: PCP Nurse Practitioner Family; Visit Provider Nurse Practitioner Family
DX: N39.0 Urinary tract infection, site not specified (principal); Z13.9 Encounter for screening, unspecified

== ENCOUNTER 2024-06-01 10:39 | Outpatient (REF) | payer BC, SELFPAY ==
[2024-06-01 14:35] LABS: Appearance Urine Clear; Color Urine Yellow; Glucose Urine UA Negative (Negative); Leukocyte Esterase Urine Negative (Negative); Nitrite Urine Negative (Negative); PH 6.5 (5.0-9.0); Urine Blood Negative (Negative); Urine Ketones Negative (Negative); Urine Protein Negative (Neg-Trace)
== END 2024-06-01 10:40 | disposition home or self-care (01) ==
LOC: HO.LAB 10:39
PROVIDERS: PCP Nurse Practitioner Family; Visit Provider Nurse Practitioner Family
DX: N39.0 Urinary tract infection, site not specified (principal)
CPT/HCPCS: 81003; 87086; 96127

== ENCOUNTER 2024-06-23 10:02 | Outpatient (AMB) | payer BC, SELFPAY ==
--- NOTE | 2024-06-23 10:11 | A.OFFPC_ITS ---
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 Is last menstrual period known: Yes Last menstrual period: 06/14/24 Post menopausal: No Patient : No Allergies [place] And Derivatives [CITRUS] Allergy (Severe, Verified 06/23/24 10:28) ANAPHYLAXIS peanut [PEANUT] Allergy (Severe, Verified 06/23/24 10:28) ANAPHYLAXIS citrus fruit Allergy (Unknown, Uncoded 06/23/24 10:28) itchy throat peanut Allergy (Unknown, Uncoded 06/23/24 10:28) anaphylaxis peanut buttter Allergy (Unknown, Uncoded 06/23/24 10:28) anaphylaxis Medication List - Last Reconciled 06/23/24 by Tu Dominguez CNP albuterol sulfate 90 mcg/actuation 2 puffs inhalation Q4-6H PRN epinephrine (EpiPen 2-Kvng) 0.3 mg (0.3 mL) IM Q4H PRN Tobacco use date assessed: 06/23/24 Dental Screening Dental Screen Date: 06/23/24 Did you have a dental visit in the last 12 months?: Yes Did you have a dental problem in the last 6 months where you did not have access to dental care?: No Was dental information given to patient?: Patient has dentist HPI HPI Comments History of Present Illness Details 24-year-old female presents for an exten ded physical exam. Acute issue(s) - Asthma: She has been waking up 1-2 buzz es weekly with wheezing since since had influenza A four months ago. She uses albuterol rescue inhaler and updraft as needed. She has birds in her home. Past Medical History - Asthma, eczema Social History - Nonsmoker. Does not vape. Drinks 2 gla sses of mixed drinks less than monthly. Denies recreational drug use - Has been making healthy dietary choice s. Exercises routinely. Generally sleep well - She notes that she is sexually active, in a monogamous relationship, and has no concern for STDs Health maintenance - She has never had an eye exam. Referre d to Ophthalmology for routine eye care - Last dental visit was in 04/2024 - Last Tdap was in 01/11/2021 - She notes that she is up-to-date on e flu vaccine - Last pap smear test was in 05/2024: Jennifer lylestrent [facility] Medical History Anxiety Eczema Dysuria Mild persistent asthma Surgical History No history of previous surgery Family History Mother Asthma Maternal Grandmother Liver cancer Paternal Grandmother Ovarian cancer Social History Housing: Apartment Alcohol intake: never Patient Tobacco Use Status: Never used Tobacco e-Cigarette/Vaping Use: Never Used service: No Current occupational status: employed 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 1. Little interest or pleasure in doing things: not at all 2. Feeling down, depressed, or hopeless: not at all 3. Trouble falling or staying asleep, or sleeping too much: not at all 4. Feeling tired or having little energy: not at all 5. Poor appetite or overeating: not at all 6. Feeling bad about yourself - or that you are a failure or have let yourself or your family down: not at all 7. Trouble concentrating on things, such as reading the newspaper or watching television: not at all 8. Moving or speaking so slowly that other people could have noticed. Or the opposite - being so fidgety or restless that you have been moving around a lot more than usual: not at all 9. Thoughts that you would be better off or of hurting yourself in some way: not at all Total score: 0 Depression Screening Interpretation: Negative Depression Screening Done: Yes 97168 - PHQ-9 Billing: Yes Source: Developed by Drs. Alex Ayala, Jayda Jo, Chriss Padilla and colleagues, with an educational iron from [employer]. Thrive Questionnaire Date Thrive assessed: 06/23/24 I am a: Patient What is your living situation today?: I have a steady place to live Within the past 12 months, did the food you bought not last and you didn't have the money to get more?: Never true Within the past 12 months, did you worry whether your food would run out before you got money to buy more?: Never true Do you have trouble paying for medicines?: No Do you have trouble getting transportation to medical appointments?: No Do you have trouble paying your heating and electricity bill?: No Do you have trouble taking care of your child, family member or friend?: No Do you have trouble with day-to-day activities such as bathing, preparing meals, shopping, managing finances, etc.?: No Are you currently unemployed and looking for a job?: No Are you interested in more education?: No Please select the resources that you would like help with: None Currently or been in a relationship where the following occur: No concerns reported THRIVE Score: 0 AUDIT C Alcohol Use Questionnaire (AUDIT-C) 1. How often do you have a drink containing alcohol?: Monthly or less 2. How many drinks containing alcohol do you have on a typical day when you are drinking?: 1 or 2 3. How often do you have six or more drinks on one occasion?: Never Total Score: 1 Score Reviewed/Action Taken: Yes LEE-7 AMB Questionnaire LEE-7 Date LEE - 7 assessed: 06/23/24 Feeling nervous, anxious, or on edge: 0 = Not at all Not being able to stop or control worryin = Not at all Worrying too much about different things: 0 = Not at all Trouble relaxin = Not at all Being so restless that it is hard to sit still: 0 = Not at all Becoming easily annoyed or irritable: 0 = Not at all Feeling afraid as if something awful might happen: 0 = Not at all Total LEE-7 score (0-4 normal; 5-9 mild; 10-14 moderate; 15-21 severe): 0 Source: Developed by Drs. Alex Ayala, Jayda Jo, Chriss Padilla and colleagues, with an educational iron from [employer]. LEE-7 Assessment Billing LEE-7 Assessment Tool: LEE-7 Assessment 50843 ACT Questionnaire In the past 4 weeks, how much of the time did your asthma keep you from getting as much done at work, school or at home?: Some of the time During the past 4 weeks, how often have you had shortness of breath?: Once a day During the past 4 weeks, how often did your asthma symptoms wake you up at night or earlier than usual in the morning?: 2-3 nights a week During the past 4 weeks, how often have you had to use your rescue inhaler or nebulizer medication?: 1-2 times a week How would you rate your asthma control during the past 4 weeks?: Somewhat controlled ACT Interpretation: Positive Score: 12 Review of Systems Const Details: Denies chills, Denies fatigue, Denies fever(s), Denies headache(s) and Denies weakness HEENT Denies change in vision, Denies dizziness, Denies headache(s), Denies hearing loss, Denies nasal congestion, Denies sinus pain, Denies sinus pressure and Denies sore throat Card Denies chest pain, Denies lightheadedness, Denies dyspnea and Denies other (palpitations) Resp Denies cough, Denies dyspnea and Denies wheezing GI Denies abdominal pain, Denies melena, Denies hematochezia, Denies change in bowel habits, Denies dyspepsia and Denies nausea Denies hematuria and Denies dysuria Musc Denies abnormal gait, Denies myalgias, Denies arthralgias, Denies numbness and Denies tingling Skin/Breast Denies rash, Denies unusual bruising and Denies wounds Neuro Denies abnormal gait, Denies dizziness, Denies headache(s), Denies memory loss, Denies numbness, Denies Sensory deficit (Neuro), Denies tingling and Denies weakness Psych Denies anxiety, Denies depression and Denies memory loss Endo Denies cold intolerance, Denies fatigue, Denies heat intolerance, Denies polydipsia and Denies polyuria Hernando/Lymph Denies easy bleeding and Denies easy bruising Aller/Immun Denies wheezing Physical exam (Primary Care) Tobacco/Smoking Status: Tobacco use Status Tobacco use date assessed 06/01/24 06/01/24 11:31 Patient Tobacco Use Status Never used Tobacco 06/01/24 11:31 e-Cigarette/Vaping Use Never Used 06/01/24 11:31 Depression Screening Interpretation: Negative Thrive Assessment: Date of Thrive Assessment Date Thrive assessed 05/29/24 06/01/24 11:31 Currently or been in a relationship where the following occur: No concerns reported Const Other: General: no acute distress, well developed, alert and awake Nutritional Appearance: well nourished Orientation/consciousness: patient oriented x3 HENMT Head: Yes normocephalic and Yes atraumatic Ears: hearing grossly normal bilaterally and TM's normal bilaterally General nose exam: Normal external nose present and Normal nares present Mouth: Normal oral and palatal mucosa present and moist mucous membranes Teeth and gingiva: dentition normal Throat: Yes oropharynx normal Eyes Pupils: Equal, round and reactive pupils present and Pupil accommodation reflex normal EOM: EOMs intact bilaterally Neck Neck: Yes normal visual inspection, Yes no lymphadenopathy and Yes trachea midline Thyroid: Thyroid normal Carotids: no bruits Lymphatic: no lymphadenopathy noted Chest Chest palpation & inspection: normal inspection of the chest Resp Effort & Inspection: normal respiratory effort Auscultation: clear to auscultation bilaterally Cardio Rate: regular rate Rhythm: regular rhythm Heart sounds: S1 normal heart sound present, S2 normal heart sound present, no gallops, no murmurs and no rubs Bruits: no abdominal aortic bruits and no carotid bruits GI Palpation (GI): No Abdominal aortic bruit present, Soft to palpation, nontender, No hepatosplenomegaly present and No Rebound tenderness present Auscultation: normal bowel sounds General: Yes no CVA tenderness Back/Spine/Pelvis Back: no CVA tenderness Cervical Spine: cervical ROM normal and No Cervical spine tenderness Thoracic/Lumbar Spine: thoraco-lumbar ROM normal, No pain with thoraco-lumbar ROM, No thoracic spinal tenderness and No lumbar spinal tenderness Skin General: warm and dry. Normal skin color. Normal skin turgor Lesions: no lesions Rashes: no rashes Trauma: no lacerations or abrasions Wounds: no wounds Nails: normal Neuro General: patient oriented x3, gait normal and CN's II-XI intact bilaterally Cranial nerves: Yes Equal, round and reactive pupils present Cognition (Neuro): normal cognition Gait exam (Neuro): Normal gait present Motor exam (neuro): 5/5 motor strength present throughout Sensory Exam: No Sensory deficit (Neuro) Deep tendon reflexes (DTR's): Right patellar reflex intensity grade: 2+ and Left patellar reflex intensity grade: 2+ Extrem General: Yes normal to inspection, No edema and No calf tenderness Psych Appearance: grossly normal Affect: normal affect Attitude: cooperative Thought process: Normal thought process present Coding Level of Care Code Est Pt Prev Care 18-39y(26813) Diagnoses Normal physical examination, routine Z00.00 Mild persistent asthma J45.30 Eye exam, routine Z01.00 Laboratory tests ordered as part of a complete physical exam (CPE) Z00.00 Additional Codes LEE-7 Assessment Billing - LEE-7 Assessment Tool: LEE-7 Assessment 50755 ([id number]) PHQ-9 - 40972 - PHQ-9 Billing: Yes ([id number]) Asthma Control Questionnaire - ACT Interpretation: Positive ([id number]) Assessment & Plan Assessment & Plan (1) Normal physical examination, routine: Code(s): Z00.00 - Encounter for general adult medical examination without abnormal findings Category: Medical Plan: No significant functional limitation noted. Continue current treatment regimen. Healthy diet and routine exercise encouraged. Perform lab work and follow-up in 2-3 weeks for telehealth visit for labs review. Return sooner with symptoms or concerns. Verbalized understanding and agreed with treatment plan. (2) Mild persistent asthma: Code(s): J45.30 - Mild persistent asthma, uncomplicated Category: Medical Plan: ACT score is 12, poorly controlled asthma. She has been waking up 1-2 times weekly with wheezing since since had influenza A four months ago. She has birds in her home. Allergies may exacerbate her symptoms. Montelukast 10 mg daily ordered; advised to take as prescribed. Instructed on the risks, benefits, and potential adverse reactions of the medication. Continue to use albuterol rescue inhaler and updraft as prescribed. Follow-up with worsening or new symptoms. May referred to pulmonology. Verbalized understanding and agreed with treatment plan. (3) Eye exam, routine: Code(s): Z01.00 - Encounter for examination of eyes and vision without abnormal findings Category: Medical Plan: She has never had an eye exam. Referred to Ophthalmology for routine eye care. Referred to Ophthalmology for routine eye exam. (4) Laboratory tests ordered as part of a complete physical exam (CPE): Code(s): Z00.00 - Encounter for general adult medical examination without abnormal findings Category: Medical Plan: Fasting labs ordered as part of a complete physical exam. Advised to fast for at least 10 hours before getting labs drawn. May drink water Verbalized understanding and agreed with treatment plan. Orders: Orders Complete Blood Count Auto Diff Today Z00.00 - Encounter for general adult medical examination without abnormal findings Comprehensive [place]. Panel Fast Today Z00.00 - Encounter for general adult medical examination without abnormal findings Lipid Panel Today Z00.00 - Encounter for general adult medical examination without abnormal findings TSH reflex Free T4 Today Z00.00 - Encounter for general adult medical examination without abnormal findings UA CC w/rflx Micro + Cult Today Z00.00 - Encounter for general adult medical examination without abnormal findings Vitamin D 25-OH Total Today Z00.00 - Encounter for general adult medical examination without abnormal findings Referrals Ophthalmology Referral Z01.00 - Encounter for examination of eyes and vision without abnormal findings Medications: New montelukast 10 mg PO BEDTIME 30 days 30 tabs 3RF Refilled epinephrine (EpiPen 2-Kvng) May repeat dose x1 after 5-15min. Call 911 for emergency evaluation after fi rst injection 0.3 mg (0.3 mL) IM Q4H PRN 2 ea 3RF anaphylaxis
[2024-06-23 10:15] VITALS: BP 109/69; PULSE 82; RESP 16; TEMP 36.8; O2SAT 98; BMI 22.6
== END 2024-06-23 10:43 | disposition home or self-care (01) ==
LOC: HO.HMCFM 10:02
PROVIDERS: PCP Nurse Practitioner Family; Visit Provider Nurse Practitioner Family
DX: Z00.00 Encounter for general adult medical examination without abnormal findings (principal); J45.30 Mild persistent asthma, uncomplicated; Z01.00 Encounter for examination of eyes and vision without abnormal findings

== ENCOUNTER → 2024-06-23 10:02 | Outpatient (BNVA) | payer BC, SELFPAY | PROVIDERS: PCP Nurse Practitioner Family; Visit Provider Nurse Practitioner Family | DX: Z00.00 Encounter for general adult medical examination without abnormal findings (principal); J45.30 Mild persistent asthma, uncomplicated | CPT/HCPCS: 96127; 96160 ==

== ENCOUNTER 2024-06-23 10:54 | Outpatient (REF) | payer BC, SELFPAY ==
[2024-06-23 14:19] LABS: Appearance Urine Clear; Color Urine Yellow; Glucose Urine UA Negative (Negative); Leukocyte Esterase Urine Small (1+) (Negative); Nitrite Urine Negative (Negative); UMIC TRIGGER UACC YES; Urine Blood Negative (Negative); Urine Ketones Negative (Negative); Urine Protein Negative (Neg-Trace)
[2024-06-23 14:22] LABS: MANUAL DIFF FLAG NO
[2024-06-23 14:24] LABS: Basophils Absolute Auto 0.1 X10*3/uL (0.0-0.2); Basophils Percent Auto 1.3 % (0-2); Eosinophils Absolute Auto 1.1 X10*3/uL (0.0-0.4); Eosinophils Percent Auto 17.5 % (0-4); Hematocrit 38.6 % (37.0-47.0); Imm Gran Abs Auto 0.02 X10*3/uL (0.00-0.03); Imm Gran Pct Auto 0.3 % (0.0-0.4); Lymphocytes Percent Auto 31.5 % (20-40); Mean Corpuscular HGB Conc 33.7 g/dl (31.0-35.0); Mean Corpuscular Hemoglobin 30.1 pg (27.0-33.0); Mean Corpuscular Volume 89.4 fL (80.0-98.0); Mean Platelet Volume 9.8 fL (9.4-12.3); Monocytes Absolute Auto 0.5 X10*3/uL (0.1-1.2); Monocytes Percent Auto 8.2 % (2-11); Neutrophils Absolute Auto 2.6 x10*3/uL (2.0-8.3); Neutrophils Percent Auto 41.2 % (45-73); Platelet Count 336 X10*3/uL (160-400); Red Blood Count 4.32 X10*6/uL (4.20-5.50); White Blood Count 6.2 X10*3/uL (4.8-10.8)
[2024-06-23 14:35] LABS: Bacteria Urine Trace (None Seen); Hyaline Casts Urine 0-2 /LPF (0-2); RBC Urine 0-2 /HPF (0-2); UACC Culture Trigger YES; WBC Urine 0-5 /HPF (0-5)
[2024-06-23 14:50] LABS: Alanine Aminotransferase 17 U/L (0-31); Albumin Level 4.1 g/dL (3.5-5.0); Alkaline Phosphatase 47 U/L (39-117); Anion Gap 7 (12-20); Aspartate Amino Transferase 30 U/L (5-31); Bilirubin Total 0.4 mg/dL (0.0-1.0); Blood Urea Nitrogen 15 mg/dL (9-16); Carbon Dioxide 24 mmol/L (22-29); Chloride 110 mmol/L (96-108); Cholesterol 170 mg/dL (<200); Estimated Glomerular Filt Rate > 60; Glucose Fasting 80 mg/dL (60-99); HDL Cholesterol 58 mg/dL (>40); LDL Cholesterol Calculated 105 mg/dL (<100); Potassium 3.9 mmol/L (3.3-5.1); Sodium 137 mmol/L (135-145); Total Protein 7.1 g/dL (6.5-8.0); Triglycerides 38 mg/dL (<150)
[2024-06-23 15:12] LABS: TSH reflex Free T4 1.15 uIU/mL (0.32-4.0); Vitamin D 25-OH Total 44.6 ng/mL (>30)
== END 2024-06-23 10:55 | disposition home or self-care (01) ==
LOC: HO.WFDLDS 10:54
PROVIDERS: Visit Provider Nurse Practitioner Family
DX: Z00.00 Encounter for general adult medical examination without abnormal findings (principal)
CPT/HCPCS: 36415; 80053; 80061; 81001; 82306; 84443; 85025; 87086

== ENCOUNTER 2024-07-13 13:57 | Outpatient (AMB) | payer BC, SELFPAY ==
--- NOTE | 2024-07-13 13:54 | MHC.PC.OV ---
Intake Visit Reasons: 2-3 wks telehealth labs review Intake Note: patient here for 2-3 weeks telehealth follow up on labs. 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 Is last menstrual period known: Yes Last menstrual period: 07/13/24 Post menopausal: No Patient : No Allergies [place] And Derivatives [CITRUS] Allergy (Severe, Verified 07/13/24 13:54) ANAPHYLAXIS peanut [PEANUT] Allergy (Severe, Verified 07/13/24 13:54) ANAPHYLAXIS citrus fruit Allergy (Unknown, Uncoded 06/23/24 10:28) itchy throat peanut Allergy (Unknown, Uncoded 06/23/24 10:28) anaphylaxis peanut buttter Allergy (Unknown, Uncoded 06/23/24 10:28) anaphylaxis Tobacco use date assessed: 06/23/24 Dental Screening Dental Screen Date: 06/23/24 HPI HPI Comments History of Present Illness Details 24-year-old female presents for a telehealth visit for review of recent lab results. She offers no complaints and denies acute symptoms at this time. 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 Alex Ayala, Jayda Jo, Chriss Padilla and colleagues, with an educational iron from [employer]. Review of Systems Const Details: Denies chills, Denies fatigue, Denies fever(s), Denies headache(s) and Denies weakness Cardiac Denies chest pain, Denies claudication, Denies leg edema, Denies lightheadedness, Denies palpitations, Denies dyspnea, Denies dyspnea on exertion, Denies orthopnea and Denies other (Loss of consciousness) Resp Denies cough, Denies excessive phlegm production, Denies dyspnea, Denies dyspnea on exertion, Denies snoring and Denies wheezing Physical exam (Primary Care) Tobacco/Smoking Status: Tobacco use Status Tobacco use date assessed 06/23/24 07/13/24 13:56 Patient Tobacco Use Status Never used Tobacco 07/13/24 13:56 e-Cigarette/Vaping Use Never Used 07/13/24 13:56 Thrive Assessment: Date of Thrive Assessment Date Thrive assessed 06/23/24 07/13/24 13:56 Const Other: Patient is alert oriented x3. Telehealth Telehealth Telehealth Platform: Telephone Location of provider rendering services: practice address Location of patient: address on file Patient Identification confirmed using: Name, : Yes Telehealth method: voice only Patient verbally consented to treatment: Yes Patient verbally consented to billing insurance company: Yes Patient informed of any privacy concerns related to visit: Yes Coding Level of Care Code Tele New Pt Level 3 ([id number]) Diagnoses Elevated LDL cholesterol level E78.00 Time Spent (min) 10 Assessment & Plan Assessment & Plan (1) Elevated LDL cholesterol level: Code(s): E78.00 - Pure hypercholesterolemia, unspecified Category: Medical Plan: Recent LDL level is slightly elevated, 105. Triglycerides, total cholesterol, and HDL levels are normal. Advised to limit foods high in saturated fat and avoid foods high in trans fat. Routine exercise encouraged. Will monitor lipid panel levels at her next extended physical exam. Follow-up as needed. Verbalized understanding and agreed with the plan.
== END 2024-07-13 14:55 | disposition home or self-care (01) ==
LOC: HO.HMCFM 13:57
PROVIDERS: PCP Nurse Practitioner Family; Visit Provider Nurse Practitioner Family
DX: E78.00 Pure hypercholesterolemia, unspecified (principal)

== ENCOUNTER → 2024-07-13 13:57 | Outpatient (BNVA) | payer BC, SELFPAY | PROVIDERS: PCP Nurse Practitioner Family; Visit Provider Nurse Practitioner Family | DX: E78.00 Pure hypercholesterolemia, unspecified (principal) | CPT/HCPCS: 98966 ==